=== PATIENT | female | born 1975 | race American Indian/Alaskan Native ===

== ENCOUNTER 2021-12-29 01:10 | Emergency (ER) | payer OTHER ==
[2021-12-29] MEDS ORDERED: Albuterol/Ipratropium 3.0-0.5 MG/3 ML Neb Soln NEB ONE (01:23)
[2021-12-29 02:04] LABS: ANION GAP 11.8 mEq/L (7-13)
[2021-12-29] MEDS ORDERED: Acetaminophen 500 MG Tab PO ONE (02:06)
[2021-12-29 02:14] LABS: CORONAVIRUS COVID-19 NAA NEGATIVE (NEGATIVE)
[2021-12-29] MEDS: Albuterol/Ipratropium 3.0-0.5 MG/3 ML Neb Soln ONE ×2 (02:20→02:59)
[2021-12-29] MEDS ORDERED: methylPREDNISolone Sodium Succinate 125 MG/2 ML SDV IVPUSH ONE (02:36)
[2021-12-29] MEDS ORDERED: Azithromycin 250 MG Tab PO ONE (03:36)
[2021-12-29] MEDS ORDERED: Albuterol 6.7 GM Inhaler INH ONE (03:41)
== END 2021-12-29 03:49 | disposition home or self-care (01) ==
LOC: DL.ED 01:10
DX: J44.1 Chronic obstructive pulmonary disease with (acute) exacerbation (principal); Z20.822 Contact with and (suspected) exposure to COVID-19
CPT/HCPCS: 0240U; 36415; 71045; 80053; 82150; 83605; 83690; 84484; 85025; 86140; 87040; 96374; 99285; A9270; J2930; J7620-GY

== ENCOUNTER 2021-12-31 09:59 | Emergency (ER) | payer OTHER ==
[2021-12-31] MEDS ORDERED: Codeine/Promethazine 10-6.25 MG/5 ML Syrup 5 ML UD Cup PO ONE (10:12)
[2021-12-31] MEDS ORDERED: Albuterol/Ipratropium 3.0-0.5 MG/3 ML Neb Soln NEB ONE (10:12)
[2021-12-31] MEDS ORDERED: Benzonatate 100 MG Cap PO ONE (10:12)
== END 2021-12-31 10:57 | disposition home or self-care (01) ==
LOC: DL.ED 09:59
DX: J44.1 Chronic obstructive pulmonary disease with (acute) exacerbation (principal); F17.210 Nicotine dependence, cigarettes, uncomplicated
CPT/HCPCS: 94640; 99284; A9270; J7620-GY

== ENCOUNTER 2022-05-25 10:35 | Emergency (ER) | payer OTHER ==
[2022-05-25] MEDS: Ketorolac 30 MG/ML SDV IM ONE (11:08)
[2022-05-25] MEDS: Acetaminophen 500 MG Tab PO ONE (11:15)
== END 2022-05-25 11:34 | disposition home or self-care (01) ==
LOC: DL.ED 10:35
DX: M62.830 Muscle spasm of back (principal); J44.9 Chronic obstructive pulmonary disease, unspecified; Z88.8 Allergy status to other drugs, medicaments and biological substances
CPT/HCPCS: 81003; 96372; 99283; A9270-GY; J1885

== ENCOUNTER 2023-05-14 10:42 | Emergency (ER) | payer OTHER ==
[2023-05-14] MEDS: MVI, Adult with Vitamin K 10 ML, Folic Acid 1 MG, Thiamine 100 MG in Lactated Ringers 1... IV ONE (11:29)
[2023-05-14] MEDS: Sodium Chloride 0.9% 10 ML Syringe FLUSH PRN (11:30)
[2023-05-14] MEDS: Ondansetron 4 MG/2 ML SDV IVPUSH ONE (11:30)
[2023-05-14 11:49] LABS: A/G RATIO 1.4; ALANINE AMINOTRANSFERASE,ALT 22 U/L (14-59); ALBUMIN 4.6 g/dL (3.4-5.0); ALKALINE PHOSPHATASE 81 U/L (46-116); AMYLASE 56 U/L (25-115); ANION GAP 20.1 mEq/L (7-13); ASPARTATE AMNIOTRANSFERASE,AST 13 U/L (15-37); BILIRUBIN TOTAL 0.5 mg/dL (0.2-1.0); BLOOD UREA NITROGEN,BUN 8 mg/dL (7-18); CARBON DIOXIDE,CO2 23 mmol/L (21-32); CHLORIDE,CL 103 mmol/L (98-107); GLUCOSE RANDOM 113 mg/dL (70-99); LIPASE 14 U/L (16-77); POTASSIUM,K 4.1 mmol/L (3.5-5.1); PROTEIN TOTAL,TP 7.8 g/dL (6.4-8.2); SODIUM,NA 142 mmol/L (136-145)
[2023-05-14 11:54] LABS: BUN/CREATININE RATIO 53.3 (No establ ref range); CREATININE < 0.15 mg/dL (0.55-1.02); EST CRCL DRUG DOSING (CG) 429.41 mL/min
[2023-05-14] MEDS: Sodium Chloride 0.9% 1,000 ML IV ONE (12:01)
[2023-05-14] MEDS: Take Home: Ondansetron 4 MG Tab.DIS, 5 Tab Pack PO ONE (13:04)
== END 2023-05-14 13:05 | disposition home or self-care (01) ==
LOC: DL.ED 10:42
DX: F10.90 Alcohol use, unspecified, uncomplicated (principal); J44.9 Chronic obstructive pulmonary disease, unspecified; Z88.8 Allergy status to other drugs, medicaments and biological substances; Z79.899 Other long term (current) drug therapy; Y90.9 Presence of alcohol in blood, level not specified
CPT/HCPCS: 36415; 80053; 82150; 83690; 83735; 96361; 96365; 96375; 99283; 99284; J2405; J3411; J7030; J7120; J3490